=== PATIENT | female | born 1990 | race Caucasian/White ===

== ENCOUNTER 2016-10-11 13:38 | Emergency (ER) | payer SELFPAY ==
[~2016-10-11] VITALS: Ht 165.1 cm; Wt 84.0 kg
[~2016-10-11 13:38] MED LIST: AMOX875T20 PO; LORT5TAB PO; PRED20 PO; Z.0.NO CURRENT MEDS
[2016-10-11 13:39] VITALS: BP 141/62; PULSE 92; RESP 16; TEMP 98.2; O2SAT 99
[2016-10-11] MEDS ORDERED: SODIUM CHLOR 0.9% 1000 ML INJ 1,000 ML IV SCH (15:09)
--- NOTE | 2016-10-11 15:14 | PD ---
HPI Chief Complaint: Abdominal Pain Time Seen by Provider: 15:09 Travel History International Travel<30 days: No Contact w/Intl Traveler<30days: No Traveled to known affect area: No History of Present Illness HPI 25-year-old female presents to the emergency department for evaluation of abdominal pain. She states she woke up with the pain on Tuesday, 3 days ago. She states the pain was epigastric in the beginning. It now is in the right lower abdomen as well as lower back. She does state she has had bilateral lower back pain for several months. Patient denies any history of abdominal pain. The patient does state her urine is cloudy. She also reports drinking more alcohol than normal last week due to her brother being in town. She states she did drink heavily when he was here. She denies any chest pain. She states she gets minimal shortness of breath when her pain becomes severe. She did take some antacids which minimally helped her pain. The patient denies any surgeries. She does not believe she is . She believes her last menstrual cycle was the end of September. Patient denies any pelvic pain. No abnormal vaginal discharge. She denies any risk of STDs. She reports being with the same sexual partner for several years. Patient reports no chronic medical problems and takes no prescribed medications. She does report diarrhea up until yesterday morning, but this has resolved. She also reports vomiting, last time being this morning. COUNTS INCLUDE 234 BEDS AT THE [facility] Past Medical History ?: Not LMP: 10/01/16 : 1 Para: 1 Social History Alcohol Use: Yes Tobacco Use: Yes Substance Use: Yes (MARIJUANA) Allergies-Medications (Allergen,Severity, Reaction): Coded Allergies: No Known Allergies (Verified , 10/11/16) Reported Meds & Prescriptions Reported Meds & Active Scripts Active No Active Prescriptions or Reported Medications Review of Systems Except as stated in HPI: all other systems reviewed are Neg Physical Exam Narrative GENERAL: Well-nourished, well-developed female patient, ambulatory. Afebrile. SKIN: Focused skin assessment warm/dry. HEAD: Normocephalic. Atraumatic. EYES: No scleral icterus. No injection or drainage. NECK: Supple, trachea midline. No JVD or lymphadenopathy. CARDIOVASCULAR: Regular rate and rhythm without murmurs, gallops, or rubs. RESPIRATORY: Breath sounds equal bilaterally. No accessory muscle use. Lungs sounds are clear to auscultation. GASTROINTESTINAL: Abdomen soft and nondistended. Patient has tenderness in the epigastric region and right lower quadrant. MUSCULOSKELETAL: No cyanosis, or edema. BACK: Nontender without obvious deformity. No CVA tenderness. Data Data Last Documented VS Vital Signs Date Time Temp Pulse Resp B/P Pulse Ox O2 Delivery O2 Flow Rate FiO2 10/11/16 13:39 98.2 92 16 141/62 99 Orders Electrocardiogram (10/11/16 ) Complete Blood Count With Diff (10/11/16 15:09) Comprehensive Metabolic Panel (10/11/16 15:09) Lipase (10/11/16 15:09) Urinalysis - C+S If Indicated (10/11/16 15:) Iv Access Insert/Monitor (10/11/16 15:09) Ecg Monitoring (10/11/16 15:09) Oximetry (10/11/16 15:09) Ondansetron Inj (Zofran Inj) (10/11/16 15:15) Sodium Chlor 0.9% 1000 Ml Inj (Ns 1000 M (10/11/16 15:09) Sodium Chloride 0.9% Flush (Ns Flush) (10/11/16 15:15) Ed Urine Pregnancytest Poc (10/11/16 15:09) Ct Abd/Pel W/O Iv Contrast (10/11/16 ) Pantoprazole Inj (Protonix Inj) (10/11/16 16:00) Labs Laboratory Tests Test 10/11/16 15:19 White Blood Count 7.7 TH/MM3 Red Blood Count 4.43 MIL/MM3 Hemoglobin 14.0 GM/DL Hematocrit 40.1 % Mean Corpuscular Volume 90.5 FL Mean Corpuscular Hemoglobin 31.5 PG Mean Corpuscular Hemoglobin 34.8 % Concent Red Cell Distribution Width 13.3 % Platelet Count 290 TH/MM3 Mean Platelet Volume 8.8 FL Neutrophils (%) (Auto) 58.6 % Lymphocytes (%) (Auto) 30.9 % Monocytes (%) (Auto) 7.7 % Eosinophils (%) (Auto) 2.5 % Basophils (%) (Auto) 0.3 % Neutrophils # (Auto) 4.5 TH/MM3 Lymphocytes # (Auto) 2.4 TH/MM3 Monocytes # (Auto) 0.6 TH/MM3 Eosinophils # (Auto) 0.2 TH/MM3 Basophils # (Auto) 0.0 TH/MM3 CBC Comment DIFF FINAL Differential Comment Urine Color YELLOW Urine Turbidity CLOUDY Urine pH 7.5 Urine Specific Hyder 1.014 Urine Protein NEG mg/dL Urine Glucose (UA) NEG mg/dL Urine Ketones NEG mg/dL Urine Occult Blood NEG Urine Nitrite NEG Urine Bilirubin NEG Urine Urobilinogen LESS THAN 2.0 MG/DL Urine Leukocyte Esterase NEG Urine WBC 1 /hpf Urine Squamous Epithelial 8 /hpf Cells Urine Amorphous Sediment RARE Urine Mucus FEW /lpf Microscopic Urinalysis Comment CULT NOT INDICATED Sodium Level 139 MEQ/L Potassium Level 3.5 MEQ/L Chloride Level 100 MEQ/L Carbon Dioxide Level 31.5 MEQ/L Anion Gap 8 MEQ/L Blood Urea Nitrogen 10 MG/DL Creatinine 0.57 MG/DL Estimat Glomerular Filtration 127 ML/MIN Rate Random Glucose 85 MG/DL Calcium Level 9.3 MG/DL Total Bilirubin 0.3 MG/DL Aspartate Amino Transf 13 U/L (AST/SGOT) Alanine Aminotransferase 29 U/L (ALT/SGPT) Alkaline Phosphatase 69 U/L Total Protein 7.3 GM/DL Albumin 3.6 GM/DL Lipase 102 U/L [facility] Medical Decision Making Medical Screen Exam Complete: Yes Emergency Medical Condition: Yes Medical Record Reviewed: Yes Interpretation(s) CT abdomen/pelvis - CONCLUSION: No acute disease. Differential Diagnosis gastritis vs pancreatitis versus cholecystitis versus appendicitis versus UTI Narrative Course 25 year old female presents to the emergency department for evaluation of abdominal pain that started 3 days ago. EKG, CBC, CMP, lipase, UA, UPT are ordered and pending. CT abdomen/pelvis is ordered and pending. Patient is given Protonix 40 mg IV. CBC is unremarkable. CMP is unremarkable. Lipase is 102. UA shows no acute infection. UPT is negative. CT abdomen/pelvis shows no acute disease. Patient will be discharged with a prescription for omeprazole. She is encouraged to follow-up with a primary care physician. She's return for any acute worsening of symptoms. She verbalizes agreement and understanding. The patient was discharged in stable condition with instructions, including return instructions and follow up instructions. Diagnosis Primary Impression: Gastritis Qualified Code: K29.00 - Acute gastritis without hemorrhage, unspecified gastritis type Referrals: Primary Care Physician call for appointment Patient Instructions: Gastritis (ED), General Instructions Additional Instructions: Take omeprazole as directed. Take Zofran as instructed as needed for nausea/vomiting. Follow-up with your primary care physician. Return to the emergency department for any acute worsening of symptoms. Med/Other Pt SpecificInfo: Prescription(s) given Scripts Ondansetron Odt 4 Mg Tab4 Mg SL Q6HR PRN (Nausea/Vomiting) #16 TAB Ref 0 Prov:Kandaec Melendez 10/11/16 Omeprazole 20 Mg Tab20 Mg PO DAILY #30 TAB Ref 0 Prov:Kandace Melendez 10/11/16 Disposition: 01 DISCHARGE HOME Condition: Stable Kandace Melendez Oct 11, 2016 15:14
[2016-10-11] MEDS ORDERED: SODIUM CHLORIDE 0.9% FLUSH 10 ML FLUSH IV FLUSH PRN (15:15)
[2016-10-11] MEDS ORDERED: ONDANSETRON HCL 4 MG/2 ML VIAL IVP ONE (15:15)
[2016-10-11] MEDS ORDERED: PANTOPRAZOLE SODIUM 40 MG VIAL IV PUSH ONE (16:00)
[2016-10-11 16:08] LABS: AUTOMATED NEUTROPHIL # 4.5 TH/MM3 (1.8-7.7); BASOPHIL % 0.3 % (0.0-2.0); EOSINOPHIL # 0.2 TH/MM3 (0-0.4); EOSINOPHIL % 2.5 % (0.0-4.0); HEMATOCRIT 40.1 % (35.0-46.0); HEMO FLAGS DIFF FINAL; LYMPH % 30.9 % (9.0-44.0); LYMPHOCYTE # 2.4 TH/MM3 (1.0-4.8); MEAN CELL VOLUME 90.5 FL (80.0-100.0); MEAN CORPUSCULAR HEMOGLOBIN 31.5 PG (27.0-34.0); MEAN CORPUSCULAR HGB CONC 34.8 % (32.0-36.0); MONO % 7.7 % (0.0-8.0); NEUT % 58.6 % (16.0-70.0); PLATELET COUNT 290 TH/MM3 (150-450); RED BLOOD COUNT 4.43 MIL/MM3 (4.00-5.30); RED CELL DISTRIBUTION WIDTH 13.3 % (11.6-17.2); WHITE BLOOD COUNT 7.7 TH/MM3 (4.0-11.0)
[2016-10-11 16:18] LABS: BLOOD, URINE NEG (NEG); COMMENT (UR) CULT NOT INDICATED; CULTURE IF INDICATED CULT NOT INDICATED; GLUCOSE,URINE NEG (NEG); KETONE, URINE NEG (NEG); MUCUS URINE FEW /lpf (OCC); NITRITE,URINE NEG (NEG); PH, URINE 7.5 (5.0-8.5); SQUAMOUS EPITHELIAL CELL URINE 8 /hpf (0-5); URINE COLOR YELLOW (YELLW/STRAW)
--- NOTE | 2016-10-11 16:18 | RADRPT ---
EXAM DATE/TIME: 10/11/2016 15:53 [facility] COMPARISON: No previous studies available for comparison. INDICATIONS : Epigastric pain radiating to back with nausea, vomiting and diarrhea. ORAL CONTRAST: No oral contrast ingested. RADIATION DOSE: 9.96 CTDIvol (mGy) MEDICAL HISTORY : None SURGICAL HISTORY : None. ENCOUNTER: Initial ACUITY: 3 days PAIN SCALE: 6/10 LOCATION: Epigastric TECHNIQUE: Volumetric scanning of the abdomen and pelvis was performed. Using automated exposure control and ad justment of the mA and/or kV according to patient size, radiation dose was kept as low as reasonably achievable to obtain optimal diagnostic quality images. FINDINGS: LOWER LUNGS: The visualized lower lungs are clear. LIVER: Homogeneous density without lesion. There is no dilation of the biliary tree. No calcified gallston es. SPLEEN: Normal size without lesion. PANCREAS: Within normal limits. KIDNEYS: Normal in size and shape. There is no mass, stone, or hydronephrosis. ADRENAL GLANDS: Within normal limits. VASCULAR: There is no aortic aneurysm. BOWEL/MESENTERY: The stomach, small bowel, and colon demonstrate no acute abnormality. There is no free intraperitone al air or fluid. ABDOMINAL WALL: Within normal limits. RETROPERITONEUM: There is no lymphadenopathy. BLADDER: No wall thickening or mass. REPRODUCTIVE: Within normal limits. INGUINAL: There is no lymphadenopathy or hernia. MUSCULOSKELETAL: Within normal limits for patient age. CONCLUSION: No acute disease. Girma Solorio MD on October 11, 2016 at 16:14 Board Certified Radiologist. This report was verified electronically.
--- NOTE | 2016-10-11 16:18 | PD ---
Data Data Last Documented VS Vital Signs Date Time Temp Pulse Resp B/P Pulse Ox O2 Delivery O2 Flow Rate FiO2 10/11/16 13:39 98.2 92 16 141/62 99 Orders Electrocardiogram (10/11/16 ) Complete Blood Count With Diff (10/11/16 15:09) Comprehensive Metabolic Panel (10/11/16 15:09) Lipase (10/11/16 15:09) Urinalysis - C+S If Indicated (10/11/16 15:09) Iv Access Insert/Monitor (10/11/16 15:09) Ecg Monitoring (10/11/16 15:09) Oximetry (10/11/16 15:09) Ondansetron Inj (Zofran Inj) (10/11/16 15:15) Sodium Chlor 0.9% 1000 Ml Inj (Ns 1000 M (10/11/16 15:09) Sodium Chloride 0.9% Flush (Ns Flush) (10/11/16 15:15) Ed Urine Pregnancytest Poc (10/11/16 15:09) Ct Abd/Pel W/O Iv Contrast (10/11/16 ) Pantoprazole Inj (Protonix Inj) (10/11/16 16:00) Labs Laboratory Tests Test 10/11/16 15:19 White Blood Count 7.7 TH/MM3 Red Blood Count 4.43 MIL/MM3 Hemoglobin 14.0 GM/DL Hematocrit 40.1 % Mean Corpuscular Volume 90.5 FL Mean Corpuscular Hemoglobin 31.5 PG Mean Corpuscular Hemoglobin 34.8 % Concent Red Cell Distribution Width 13.3 % Platelet Count 290 TH/MM3 Mean Platelet Volume 8.8 FL Neutrophils (%) (Auto) 58.6 % Lymphocytes (%) (Auto) 30.9 % Monocytes (%) (Auto) 7.7 % Eosinophils (%) (Auto) 2.5 % Basophils (%) (Auto) 0.3 % Neutrophils # (Auto) 4.5 TH/MM3 Lymphocytes # (Auto) 2.4 TH/MM3 Monocytes # (Auto) 0.6 TH/MM3 Eosinophils # (Auto) 0.2 TH/MM3 Basophils # (Auto) 0.0 TH/MM3 CBC Comment DIFF FINAL Differential Comment MDM Supervised Visit with TIAN: Yes Narrative Course I, Dr. Childers, have reviewed the advance practice practioner's documentation and am in agreement, met with the patient face to face, made the diagnosis, and the medical decision making was done by me. *My assessment and Findings: 25-year-old female with complaint of abdominal pain. Patient has had primarily epigastric and right sided abdominal pain since drinking heavily alcohol this past week. History of GERD and states that this feels somewhat similar, she took a Zantac with some slight improvement. Symptoms are made worse almost immediately, to 30 minutes after eating. No abnormal vaginal pain, discharge or bleeding. On exam patient has epigastric and right sided tenderness to palpation of the abdomen. This does extend in the right lower quadrant. Differential includes gastritis, pancreatitis, hepatobiliary pathology, appendicitis. Urine test negative. Will obtain laboratory workup and CT imaging of the abdomen and pelvis for hopeful disposition to home with treatment for gastritis if workup unremarkable. Scripts No Active Prescriptions or Reported Meds Justina Childers MD Oct 11, 2016 16:18
[2016-10-11 16:35] LABS: ALT (GPT) 29 U/L (10-53); ANION GAP 8 MEQ/L (5-15); AST (GOT) 13 U/L (15-37); BICARBONATE 31.5 MEQ/L (21.0-32.0); BLOOD UREA NITROGEN 10 MG/DL (7-18); CHLORIDE 100 MEQ/L (98-107); GLOMERULAR FILTRATION RATE 127 ML/MIN (>89); POTASSIUM 3.5 MEQ/L (3.5-5.1); SODIUM (NA) 139 MEQ/L (136-145)
[2016-10-11 16:37] LABS: ALKALINE PHOSPHATASE 69 U/L (45-117); TOTAL BILIRUBIN ADULT 0.3 MG/DL (0.2-1.0)
[2016-10-11] MEDS ORDERED: OMEP20TA PO (16:40)
[2016-10-11] MEDS ORDERED: ONDA4TAB7 SL (16:40)
--- NOTE | 2016-10-12 11:47 | EKG ---
Date Performed: 10/11/2016 Time Performed: 14:43:20 PTAGE: 25 years EKG: Sinus rhythm NORMAL ECG NO PREVIOUS TRACING DOCTOR: Monico Cruz Interpretating Date/Time 10/12/2016 11:41:44
== END 2016-10-11 17:17 | disposition home or self-care (01) ==
LOC: NEPD 13:38
DX: K29.00 Acute gastritis without bleeding (principal); Z72.0 Tobacco use
CPT/HCPCS: 74176; 80053; 81001; 83690; 84703; 85025; 93005; 96361; 96374; 96375; 99284; C9113; J2405; J7030

== ENCOUNTER 2017-04-11 11:33 | Emergency (ER) | payer OTHER ==
[~2017-04-11] VITALS: Ht 167.6 cm; Wt 90.0 kg
[~2017-04-11 11:33] MED LIST changes: -AMOX875T20 PO; -LORT5TAB PO; +OMEP20TA PO; +ONDA4TAB7 SL; -PRED20 PO; -Z.0.NO CURRENT MEDS
[2017-04-11 11:34] VITALS: BP 148/86; PULSE 98; RESP 15; TEMP 98.2; O2SAT 95
[2017-04-11] MEDS ORDERED: ROBA500T PO (14:06)
[2017-04-11] MEDS ORDERED: IBUP800T23 PO (14:06)
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
[2017-04-11] MEDS ORDERED: METHOCARBAMOL 500 MG TAB PO ONE (14:15)
[2017-04-11] MEDS ORDERED: IBUPROFEN 800 MG TAB PO ONE (14:15)
== END 2017-04-11 14:16 | disposition home or self-care (01) ==
LOC: NEPK 11:33
DX: S39.012A Strain of muscle, fascia and tendon of lower back, initial encounter (principal); V89.2XXA Person injured in unspecified motor-vehicle accident, traffic, initial encounter
CPT/HCPCS: 99283

== ENCOUNTER 2017-06-07 08:21 | Emergency (ER) | payer SELFPAY ==
[~2017-06-07] VITALS: Ht 167.6 cm; Wt 81.5 kg
[~2017-06-07 08:21] MED LIST changes: +IBUP1TAB7 PO; -OMEP20TA PO; +OMEP20TA93 PO; +ROBA500T PO
[2017-06-07 08:23] VITALS: BP 122/72; PULSE 94; RESP 18; TEMP 98.6; O2SAT 99
--- NOTE | 2017-06-07 09:21 | PD ---
HPI Chief Complaint: ENT Complaint Time Seen by Provider: 09:16 Travel History International Travel<30 days: No Contact w/Intl Traveler<30days: No Traveled to known affect area: No History of Present Illness HPI 26-year-old female presents to the emergency room for evaluation of severe sore throat since last night. Patient states a lot of coworkers are sick as well. She reports chills and night sweats but denies any fevers. She has not taken anything for symptoms. No chronic medical conditions or daily medications. PFSH Past Medical History : 1 Para: 1 Social History Alcohol Use: Yes (2X PER WEEK) Tobacco Use: Yes (/2 PPD) Substance Use: Yes (MARIJUANA) Allergies-Medications (Allergen,Severity, Reaction): Coded Allergies: No Known Allergies (Verified Adverse Reaction, Unknown, 06/07/17) Reported Meds & Prescriptions Reported Meds & Active Scripts Active Magic Mouthwash Adult Liq (Multi-Ingredient Mouthwash/Gargle) 120 Ml Susp 10 Ml SWISH-SWAL ACHS Each 5mL contains: Nystatin 200,000units, Diphenhydramine 4.25mg, Viscous Lidocaine 10mg, Amin syrup 0.8 mL Amoxicillin 500 Mg Tab 500 Mg PO BID 10 Days Review of Systems Except as stated in HPI: all other systems reviewed are Neg Physical Exam Narrative GENERAL: Well-nourished, well-developed female in no acute distress. Afebrile. Ambulatory. SKIN: Focused skin assessment warm/dry. HEAD: Normocephalic. EYES: No scleral icterus. No injection or drainage. ENT: Mucosa pink and moist. Severe erythema with moderate edema and exudates. No uvular edema. No uvular, palatal, or tonsillar deviation. NECK: Supple, trachea midline. No JVD or lymphadenopathy. CARDIOVASCULAR: Regular rate and rhythm without murmurs, gallops, or rubs. RESPIRATORY: Breath sounds equal bilaterally. No accessory muscle use. Data Data Last Documented VS Vital Signs Date Time Temp Pulse Resp B/P (MAP) Pulse Ox O2 Delivery O2 Flow Rate FiO2 06/07/17 09:28 06/07/17 08:23 98.6 94 18 99 Room Air Orders Orders Group A Rapid Strep Screen (06/07/17 08:39) MDM Medical Decision Making Medical Screen Exam Complete: Yes Emergency Medical Condition: Yes Medical Record Reviewed: Yes Differential Diagnosis strep, flu, viral pharyngitis Narrative Course 26-year-old female presents to the emergency room for evaluation of sore throat for the past day. Physical exam reveals extreme erythema of pharynx with moderate edema and mild exudates. Vital signs stable. Strep is positive. Patient discharged with amoxicillin and told to follow up with PCP return for worsening symptoms. She understands and agrees to plan. Diagnosis Primary Impression: Strep pharyngitis Referrals: Primary Care Physician Additional Instructions: Rest and drink plenty of fluids. Take amoxicillin as directed, until gone. Tylenol and Motrin for pain. Follow up with a primary care physician. Return to emergency room for worsening symptoms, as discussed. Med/Other Pt SpecificInfo: Prescription(s) given Scripts Hhjbjiaq-Yqlqovvwdrfyhrg-Wprehfqaj Liq (Magic Mouthwash Adult Liq) 120 Ml Susp 10 ML SWISH-SWAL ACHS for Mouth sores, #120 ML 0 Refills Each 5mL contains: Nystatin 200,000units, Diphenhydramine 4.25mg, Viscous Lidocaine 10mg, Amin syrup 0.8 mL Prov: Sandee Enriquez DO 06/07/17 Amoxicillin (Amoxicillin) 500 Mg Tab 500 MG PO BID for Infection for 10 Days, #20 TAB 0 Refills Prov: Sandee Enriquez DO 06/07/17 Disposition: 01 DISCHARGE HOME Condition: Stable Bella Jaquez Jun 07, 2017 09:21
[2017-06-07] MEDS ORDERED: AMOX500T PO (09:22)
[2017-06-07] MEDS ORDERED: MAGICADU2 SWISH-SWAL (09:22)
== END 2017-06-07 09:35 | disposition home or self-care (01) ==
LOC: NEPK 08:21
DX: J02.0 Streptococcal pharyngitis (principal); F17.200 Nicotine dependence, unspecified, uncomplicated
CPT/HCPCS: 87880; 99284